=== PATIENT | female | born 1990 | race Caucasian/White ===

== ENCOUNTER 2017-07-18 10:23 | Emergency (ER) | payer OTHER, SELFPAY ==
[2017-07-18 10:24] VITALS: BP 123/80; PULSE 94; RESP 18; TEMP 36.7; O2SAT 93; BMI 35.4
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
[2017-07-18] MEDS: Diphth,Pertuss(Acell),Tet Vac 0.5 ML Vial IM (11:14)
[2017-07-18] MEDS: HYDROcodone Bitartrate/Apap 5/325 Tablet PO (11:15)
[2017-07-18] MEDS: Naproxen 250 MG Tablet 500 MG PO (11:15)
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
[2017-07-18 11:53] VITALS: BP 127/86; PULSE 110; RESP 15; O2SAT 97
== END 2017-07-18 11:54 | disposition home or self-care (01) ==
PROVIDERS: Emergency Provider Emergency Medicine; Family Provider Family Medicine; PCP Family Medicine
DX: S20.219A Contusion of unspecified front wall of thorax, initial encounter (principal); S90.01XA Contusion of right ankle, initial encounter; V43.52XA Car driver injured in collision with other type car in traffic accident, initial encounter; Y93.9 Activity, unspecified; Y92.009 Unspecified place in unspecified non-institutional (private) residence as the place of occurrence of the external cause; Y99.9 Unspecified external cause status; Z88.0 Allergy status to penicillin
CPT/HCPCS: 71046; 73610; 90715; 99283

== ENCOUNTER → 2018-07-09 16:08 | Outpatient (CLI) | payer OTHER, SELFPAY ==
[2018-07-09 17:54] LABS: Chlamydia Trachomatis by PCR Negative (Negative); Neisserai gonorrhoeae by PCR Negative (Negative); Probe Check PASS; Sample Adequacy Control PASS; Specimen Processing Control PASS
== END ==
PROVIDERS: Family Provider Family Medicine; PCP Family Medicine; Visit Provider Obstetrics & Gynecology
DX: Z11.3 Encounter for screening for infections with a predominantly sexual mode of transmission (principal); Z32.01 Encounter for pregnancy test, result positive
CPT/HCPCS: 87491; 87591

== ENCOUNTER → 2018-08-09 09:47 | Outpatient (CLI) | payer OTHER, SELFPAY ==
[2018-08-09 10:39] LABS: Color, Urine Yellow (Yellow); Glucose, Dipstick Normal (Normal); Ketone-Dipstick 5 mg/dl (Negative); Leukocyte Esterase-Dipstick 100 /ul (Negative); Nitrite-Dipstick Negative (Negative); Occult Blood-Urine Negative /ul (Negative); Protein-Dipstick Negative (Negative); Specific Gravity, Urine 1.015 (1.002-1.030); Urine Bilirubin Dipstick Negative (Negative); Urine Clarity Sl. Cloudy (Clear); Urine Urobilinogen Normal (Normal); Urine pH 6.5 (5.0 - 8.0)
[2018-08-09 10:41] LABS: Absolute Lymphocyte Count 1.92 X10^3/ul (0.83-4.51); Absolute Neutrophil Count 4.8 X10^3/uL (2.0-7.7); Basophil# 0.01 X10^3/uL; Basophil% 0.1 % (0-1); Eosinophil# 0.22 X10^3/uL; Eosinophils% 2.8 % (0-5); Hematocrit 40.8 % (37-47); Hemoglobin 13.8 g/dl (12.0-15.0); Lymphocyte # 1.92 X10^3/ul (4.0); Lymphocyte % 24.8 % (19-41); Mean Corp Hgb Conc 33.8 g/gl (32-36); Mean Corpuscular Hgb 28.3 pg (27.0-32.0); Mean Corpuscular Volume 83.6 fL (81-99); Mean Platelet Vol. 9.5 fl (6.2-12.0); Monocyte# 0.71 X10^3/uL; Monocyte% 9.2 % (0-10); Neutrophil # 4.83 X10^3/uL (2.7-7.7); Neutrophil % 62.6 % (47-70); POSITIVE COUNT NO; POSITIVE DIFFERENTIAL NO; POSITIVE MORPHOLOGY NO; Platelet Count 262 K/mm3 (150-450); RBC Distribution Width CV 13.5 % (11.6-14.6); RBC Distribution Width SD 41.2 fl (35.1-43.9); Red Blood Count 4.88 M/mm3 (4.2-5.4); White Blood Count 7.7 K/mm3 (4.4-11.0)
[2018-08-09 10:58] LABS: Thyroid Stim Hormone (TSH) 0.79 uIU/mL (0.358-3.74)
[2018-08-09 11:37] LABS: HIV - WCH Non-Reactive (Nonreactive); Rubella IgG 152.8 IU/mL
[2018-08-10 12:14] LABS: HEPATITIS B SURFACE AG Negative (Negative); Hep C Antibodies <0.1 s/co ratio (0.0-0.9)
[2018-08-13 01:43] LABS: Prenatal RPR NONREACTIVE (NONREACTIVE)
== END ==
PROVIDERS: Visit Provider Obstetrics & Gynecology
DX: Z34.81 Encounter for supervision of other normal pregnancy, first trimester (principal)
CPT/HCPCS: 36415; 81002; 84443; 85025; 86703; 86762; 86803; 87340

== ENCOUNTER → 2018-12-09 09:04 | Outpatient (CLI) | payer OTHER, SELFPAY ==
[2018-12-09 10:44] LABS: Hematocrit 37.1 % (37-47); Hemoglobin 12.5 g/dL (12.0-15.0); Mean Corp Hgb Conc 33.7 g/dL (32-36); Mean Corpuscular Hgb 29.7 pg (27.0-32.0); Mean Corpuscular Volume 88.1 fL (81-99); Mean Platelet Vol. 9.6 fl (6.2-12.0); Platelet Count 243 K/mm3 (150-450); RBC Distribution Width CV 13.9 % (11.6-14.6); RBC Distribution Width SD 44.8 fl (35.1-43.9); Red Blood Count 4.21 M/mm3 (4.2-5.4); White Blood Count 9.3 K/mm3 (4.4-11.0)
[2018-12-09 10:58] LABS: Glucose Challenge Gest 1H 50g 94 mg/dL (70-140)
== END ==
PROVIDERS: Referring Provider Obstetrics & Gynecology; Visit Provider Obstetrics & Gynecology
DX: Z34.83 Encounter for supervision of other normal pregnancy, third trimester (principal)
CPT/HCPCS: 36415; 82950; 85027; 86850

== ENCOUNTER 2019-02-10 03:45 | Inpatient (IN) | payer OTHER, SELFPAY ==
[2019-02-10] VITALS (21 sets, daily range): BP systolic 92–111; BP diastolic 40–92; PULSE 68–93; RESP 14–20; TEMP 36.3–37.4; O2SAT 95–100; BMI 39.7
--- NOTE | 2019-02-10 04:10 | PCM.HPOB.BLA ---
History and Physical Date of Admission: 02/10/19 OB HISTORY AND PHYSICAL EXAMINATION History of this : 28 yo female Ab0 with EDC 02/27/2019 by Ultrasound, presents to Labor and Delivery with SROM at 37 1/2 wk EGA care remarkable for - 1.) Call [facility] for C/S if in labor 2.) ALLERGIC to PCN, Ampicillin 3.) AB NEG 4.) Prior C section, CPD. C & P for 5 hr plans repeat C section Pertinent Past Medical History: As above. Allergies: Penicillins Medications: During - 28 mg-800 mcg tablet Review of Systems: gush of fluid, Contractions PAST HISTORY: Breast/Ovarian/Colon Cancers - Denies Infections - Chicken pox Illnesses - none Accidents - None History of Abnormal PAPS - Denies Hospitalizations - None SURGICAL HISTORY: 1. broken nose 1999 2. [place] Teeth Removal 3. 01/19/2017 Summer Donavon Wheeler MD MENSTRUAL HISTORY: LMP Known?- DefiniteAmount/Duration - 5 days, Regularity - regular, Frequency - monthly days, LMP - 05/23/18, Age Onset Menarche - 11 PAST PREGNANCIES: Total Pregnancies - 2; Full Term Pregnancies - 1; Premature - 0; Abortions, Induced - 0; Abortions, Spontaneous - 0; Ectopics - 0; Multiple Births - 0; Living Children - 1 FAMILY HISTORY: Father - Heart disorder; Paternal Grandparent - Heart disorder; Paternal Grandparent - Type 2 Diabetes; SOCIAL HISTORY: Alcohol Use - denies drinking Smoking - Never Diet - no special diet Lifestyle - Exercise - active work Seat Belt Use - always Employer - [employer]. 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 Illicit Drug Use - denies use of street drugs Sexual Activity - Residence - owns a home Place of - [place], [place] Hours Worked - 40 hours per week Spouse-Sig Other Name - Barron Spouse-Sig Other Occupation - management information systems director-[employer] Spouse-Sig Other Phone No - [phone] Children Name(s) - Tracy Control - PHYSICAL EXAMINATION General Appearance: 28 yo female in no acute distress Vital Signs: AF, VSS Breasts: deferred Abdomen: gravid Pelvis: Cervix: 3 /75/-3 cm per RN check, Grossly ruptured membranes Presentation: Vtx cephalic Station: Fetus: Size: AGA Movement: present Heart: 140-150s UCs q 3-4 minutes Impression /Plan: Intrauterine . 37 4/7 wk EGA with SROM, contractions. Prior C section. Planned repeat C section. Admit for repeat C/S
[2019-02-10] MEDS: Lactated Ringers 1,000 ML 999 ML IV (04:25)
[2019-02-10 04:40] LABS: Absolute Lymphocyte Count 1.58 X10^3/uL (0.83-4.51); Absolute Neutrophil Count 6.6 X10^3/uL (2.0-7.7); Basophil# 0.04 X10^3/uL; Basophil% 0.4 % (0-1); Eosinophil# 0.35 X10^3/uL; Eosinophils% 3.7 % (0-5); Hematocrit 37.7 % (37-47); Hemoglobin 12.5 g/dL (12.0-15.0); Lymphocyte # 1.58 X10^3/ul (4.0); Lymphocyte % 16.7 % (19-41); Mean Corp Hgb Conc 33.2 g/dL (32-36); Mean Corpuscular Volume 87.5 fL (81-99); Mean Platelet Vol. 9.9 fl (6.2-12.0); Monocyte# 0.76 X10^3/uL; NRBC Flagged by Analyzer 0 % (0-5); Neutrophil # 6.62 X10^3/uL (2.7-7.7); Neutrophil % 69.9 % (47-70); Platelet Count 226 K/mm3 (150-450); RBC Distribution Width CV 14.5 % (11.6-14.6); RBC Distribution Width SD 45.9 fl (35.1-43.9); Red Blood Count 4.31 M/mm3 (4.2-5.4); White Blood Count 9.5 K/mm3 (4.4-11.0)
--- NOTE | 2019-02-10 04:59 | DCINST_ITS ---
Discharge Diet: No Restrictions Discharge Activity: May not drive while taking narcotic pain medications., May Shower, May Take a Tub Bath May resume sexual activity in: 4-6 weeks Lifting Restrictions: 20 pounds Additional Activity Instructions:: Nothing in the vagina for 4-6 weeks. You may return to work/school in 6 weeks. Additional Instructions: If you experience any of the following, contact your healthcare provider. * Bleeding that soaks a pad every hour for 2 hours * Fever 100.4 or higher * Unrelieved incision or abdominal pain * Swelling, redness, discharge or bleeding from your incision * Problems urinating (including inability to urinate or burning while urinating). * Visual changes * Severe headache * Flu-like symptoms * Pain or redness in one of both of your breasts * Pain, warmth, tenderness or swelling in your legs, especially the calf area * Frequent nausea and vomiting * Symptoms of depression or anxiety If you experience any of the following, call 911 or go to the nearest Emergency Room. * Chest pain * Problems breathing * Seizure activity * Partial or complete paralysis of a body part, slurred speech, weakness or drooping of the face, or a sudden inability to walk or hold your balance Allergies/Adverse Reactions: Allergies amoxicillin Allergy (Verified 02/10/19 04:18) Hives Penicillins Allergy (Verified 02/10/19 04:18) Hives Medications to take at Discharge Vits [Prenatabs FA ] 1 tab PO DAILY 01/18/17 Docusate Sodium [Colace] 100 mg PO BID #30 cap 02/10/19 Naproxen [Naprosyn] 250 - 500 mg PO TID PRN PRN #30 tab 02/10/19 Oxycodone [Oxyir] 5 mg PO Q6H PRN PRN 4 Days #15 tablet 02/10/19 The following prescriptions were given: Docusate Sodium [Colace] 100 mg PO BID #30 cap Transmission Status: [facility] to [id number] Naproxen [Naprosyn] 250 - 500 mg PO TID PRN PRN #30 tab PRN Reason: Mild-Mod Pain (1-09/03) Transmission Status: [id number] Oxycodone [Oxyir] 5 mg PO Q6H PRN PRN 4 Days #15 tablet PRN Reason: Mod-Severe Pain (4-02/03) Transmission Status: [facility] by [id number] Follow-Up: Call to make an appointment with your doctor for an incision check in 1-2 weeks. You will also need a 6 week post- follow up appointment. Test results from this visit will be discussed in further detail at your follow- up appointment, if applicable. Please Follow Up With: Rowena Alvarado MD - [phone] When: Call to make an appointment for an incision check in 2 weeks.
--- NOTE | 2019-02-10 04:59 | PCM.DCCSEC ---
Discharge Diet: No Restrictions Discharge Activity: May not drive while taking narcotic pain medications., May Shower, May Take a Tub Bath May resume sexual activity in: 4-6 weeks Lifting Restrictions: 20 pounds Additional Activity Instructions:: Nothing in the vagina for 4-6 weeks. You may return to work/school in 6 weeks. Additional Instructions: If you experience any of the following, contact your healthcare provider. Bleeding that soaks a pad every hour for 2 hours Fever 100.4 or higher Unrelieved incision or abdominal pain Swelling, redness, discharge or bleeding from your incision Problems urinating (including inability to urinate or burning while urinating). Visual changes Severe headache Flu-like symptoms Pain or redness in one of both of your breasts Pain, warmth, tenderness or swelling in your legs, especially the calf area Frequent nausea and vomiting Symptoms of depression or anxiety If you experience any of the following, call 911 or go to the nearest Emergency Room. Chest pain Problems breathing Seizure activity Partial or complete paralysis of a body part, slurred speech, weakness or drooping of the face, or a sudden inability to walk or hold your balance Allergies/Adverse Reactions: Allergies amoxicillin Allergy (Verified 02/10/19 04:18) Hives Penicillins Allergy (Verified 02/10/19 04:18) Hives Medications to take at Discharge Vits [Prenatabs FA ] 1 tab PO DAILY 01/18/17 Docusate Sodium [Colace] 100 mg PO BID #30 cap 02/10/19 Naproxen [Naprosyn] 250 - 500 mg PO TID PRN PRN #30 tab 02/10/19 Oxycodone [Oxyir] 5 mg PO Q6H PRN PRN 4 Days #15 tablet 02/10/19 The following prescriptions were given: Docusate Sodium [Colace] 100 mg PO BID #30 cap Transmission Status: [id number] Naproxen [Naprosyn] 250 - 500 mg PO TID PRN PRN #30 tab PRN Reason: Mild-Mod Pain (-09/03) Transmission Status: [id number] Oxycodone [Oxyir] 5 mg PO Q6H PRN PRN 4 Days #15 tablet PRN Reason: Mod-Severe Pain (-02/03) Transmission Status: [facility] by [id number] Follow-Up: Call to make an appointment with your doctor for an incision check in 1-2 weeks. You will also need a 6 week post- follow up appointment. Test results from this visit will be discussed in further detail at your follow-up appointment, if applicable. Please Follow Up With: Rowena Alvarado MD - [phone] When: Call to make an appointment for an incision check in 2 weeks.
[2019-02-10] MEDS: Sodium Citrate/Citric Acid 30 ML UDC PO (05:11)
[2019-02-10] MEDS: Ketorolac 30 MG/ML Syringe IV ×4 (06:18→23:48)
--- NOTE | 2019-02-10 06:22 | OP.PCM_ITS ---
Delivery Classification: SULTANA Final NENITA: 02/28/19 Gestational age: 37 Weeks and 3 Days hogshead opener: Sergo Muñoz Type of Anesthesia:: Spinal - Jarvis Whipple MD Date of Procedure: 02/10/19 Pre-Operative Diagnosis: 37 4/7 wk EGA SROM labor Prior C/S planned repeat C section Post-Operative Diagnosis: Same Indications: SROM 37 4/7 wk labor. Indications for : Repeat Elective Description of Procedure: Findings: At amniotomy, clear fluid was noted. Valdez viable male in vertex presentation. Apgars 8/9, Baby weight:6# 8 oz There was a normal appearing uterus, fallopian tubes and ovaries bilaterally. There were minimal filmy adhesions between the bladder and lower uterine segment. PATH: Routine cord blood for typing collected. Narrative account: After the risks, benefits and alternatives of the procedure were reviewed with the patient, informed consent was obtained. The patient was taken to the Operating room with an IV running, and placed in a seated position on the operating table for placement of the spinal. Once the spinal had been administered, she was briefly frog-legged for Brooks catheter placement, and then repositioned to dorsal supine position with leftward displacement of the uterus, and prepped and draped in the usual sterile fashion. Once the spinal was deemed adequate, a Pfannenstiel skin incision was created using the knife . The incision was carried down to the rectus fascia using the knife. The fascia was nicked in the midline. The fascial incision was extended bilaterally using curved Bowles scissors. The superior aspect of the fascial incision was grasped with Mick clamps and tented up and the underlying rectus abdominal muscles were dissected free. In a similar manner, the inferior aspect of the facial incision was grasped with Mick clamps tented up and the underlying rectus abdominal muscles were dissected free. The rectus abdominis muscles were in the midline and the peritoneum was identified and entered by blunt dissection high in the incision. The peritoneum was stretched laterally and a bladder blade was inserted. A bladder flap was created along the lower uterine segment with Metzenbaum scissors . The uterine incision was then created using Metzenbaum scissors. The operators fingertips were used to extend the uterine incision by blunt dissection in a caudad- cephalad orientation . Clear fluid was noted at amniotomy. The vertex was then delivered atraumatically through the incision. The OP and nares were bulb suctioned on the abdomen. The shoulders delivered easily . The cord clamped x two and cut. And the in lila was handed off to the nurse awaiting delivery after briefly showing him to his parents. The baby had a spontaneous, vigorous cry. The placenta was then delivered. The uterus was exteriorized and cleared of clots and debris . The uterine incision was repaired with 1 Vicryl in a running locked fashion. A figure of eight stitch of 1 Vicryl was placed at the Right uterine angle. A second imbricating layer was then placed, using 1 Monocryl in running nonlocked fashion. Bovie cautery was used to treat any bleeding areas . Excellent hemostasis was noted. At this point the uterus was returned to the abdominal cavity. The gutters were cleared of clots and debris and the incision at the uterus was inspected. Excellent hemostasis was noted. The peritoneal edges and rectus abdominis muscles were reapproximated with vertical mattress stitches of 1 Vicryl. Excellent hemostasis was noted at the subfascial space The fascia was closed in a running nonlocked fashion with a Stratofix. The Subcutaneous fatty tissue was Bovie cauterized as needed for hemostasis. This layer was then reapproximated in a single layer closure of running 3-0 Vicryl to eliminate lala d space. The skin edges were closed in a Subcuticular stitch of 4-0 Monocryl. The incision was cleansed. Cavilon, Steristrips, and Mepilex dressing were applied to the skin . The patient was then transferred to the recovery room bed in stable condition after tolerating the procedure well. Sponge, lap, needle and instrument counts correct times two. Medications given preop and intraoperatively included: Gentamicin and Clindamycin given cotton ball bagger to the operating room. The patient also received Pitocin given IV after cord clamp, and Toradol 30 mg IV times one. For a complete listing of medications given preop and intraoperatively, please see the anesthesia record. Amniotic Membrane Rupture Type: Spontaneous Amniotic Fluid Description: Clear Placenta Disposition: [facility] Drain: Brooks to straight drain Fluids Replaced: LR Cord Entanglement: None Cord Vessel Description: 3 Vessels Infant Gender: Male (1 minute): 8 (5 minute): 9 Antibiotic Given: Clindamycin 600mg IV x1 and Gentamicin 1.5mg/kg IV x1 Pt instructed on risks of surgery: Bleeding, Infection Complications: None - Admit VTE Documentation VTE Present on Admission: No VTE Mechan Device Prophylaxis: SCD's VTE Pharm Prophylaxis ordered?: No
[2019-02-10] MEDS: Oxytocin 30 units/NS 500 ml 30 UNITS/500 ML IV.SOLN 167 UNITS IV (06:40)
[2019-02-10] MEDS: Lactated Ringers 1,000 ML 100 ML IV (09:50)
--- NOTE | 2019-02-10 12:19 | CPS ---
patient , explained to her and she has prior knowledge, she will start later.
[2019-02-10] MEDS: 0.9% Saline Lock 10 ML Syringe IV (23:48)
[2019-02-11] VITALS: BP 103/56; PULSE 94; RESP 16; TEMP 37; O2SAT 97
[2019-02-11 02:30] VITALS: PULSE 72; RESP 16; O2SAT 96
[2019-02-11 04:30] VITALS: BP 100/44; PULSE 94; RESP 16; TEMP 36.6; O2SAT 96
[2019-02-11] MEDS: Ketorolac 30 MG/ML Syringe IV ×2 (05:38→12:04)
[2019-02-11] MEDS: 0.9% Saline Lock 10 ML Syringe IV ×3 (05:39→18:24)
[2019-02-11 06:21] LABS: Hematocrit 31.1 % (37-47); Hemoglobin 10.1 g/dL (12.0-15.0); Mean Corp Hgb Conc 32.5 g/dL (32-36); Mean Corpuscular Hgb 28.5 pg (27.0-32.0); Mean Corpuscular Volume 87.9 fL (81-99); Platelet Count 192 K/mm3 (150-450); RBC Distribution Width CV 14.8 % (11.6-14.6); RBC Distribution Width SD 47.5 fl (35.1-43.9); Red Blood Count 3.54 M/mm3 (4.2-5.4); White Blood Count 11.5 K/mm3 (4.4-11.0)
--- NOTE | 2019-02-11 07:23 | PCM.PN.OB ---
Subjective: POD#1 Repeat C/s in labor 37 1/2 wk EGA doing well. Nursing. Brooks out and IV to saline lock. Pain control adequate and denies N/V. - Physical Exam General: Alert, Oriented x3, Cooperative, No apparent distress HEENT: Atraumatic, EOMI Neck: Supple Abdomen: Soft - Fundus firm and minimally tender, inferior to umbilicus Skin: Incision - Silver mepilex dressing CDI. Neurological: Cranial nerves II-XII grossly intact Psych/Mental Status: Normal Affect Vital Signs Temp Pulse Resp BP Pulse Ox 97.9 F 94 16 100/44 L 96 02/11/19 04:30 02/11/19 04:30 02/11/19 04:30 02/11/19 04:30 02/11/19 04:30 Oxygen Delivery Method Room Air Weight: 105 kg Body Mass Index (BMI) 39.7 Intake and Output for Last 24 Hours 02/09/19 02/10/19 02/11/19 23:59 23:59 23:59 Intake Total 4178.63 / 4178.63 Output Total 1300 / 2100 1750 / 1750 Balance 2878.63 / 2078.63 -1750 / -1750 Laboratory Tests Past 24 Hrs 02/11/19 06:00 WBC 11.5 H RBC 3.54 L Hgb 10.1 L Hct 31.1 L MCV 87.9 MCH 28.5 MCHC 32.5 RDW Std Deviation 47.5 H RDW Coeff of Nicole 14.8 H Plt Count 192 MPV 10.0 Medical Necessity - Tobacco Use Smoking Status: Never smoker Assessment/Plan All Active Problems S/P section (Acute) POD#1 Repeat C/s in labor 37 1/2 wk EGA Stable postop. Continue routine postop care. Inc diet and activity as tolerated. Begin po meds. continue Toradol through S/L Brooks removed for voiding trial.
[2019-02-11 08:00] VITALS: BP 98/48; PULSE 82; RESP 16; TEMP 36.8; O2SAT 96
[2019-02-11] MEDS: Senna/Docusate Sodium 1 Tablet PO (12:04)
[2019-02-11 13:53] VITALS: BP 100/53; PULSE 90; RESP 18; TEMP 36.9
[2019-02-11] MEDS: Acetaminophen 500 MG Tablet 1000 MG PO (15:50)
[2019-02-11] MEDS: Naproxen 250 MG Tablet PO (18:42)
[2019-02-11] MEDS: oxyCODONE 5 MG Tablet PO (19:58)
[2019-02-11 20:00] VITALS: BP 110/67; PULSE 102; RESP 18; TEMP 36.6; O2SAT 97
[2019-02-12 01:50] VITALS: BP 105/61; PULSE 91; RESP 18; TEMP 36.6; O2SAT 97
[2019-02-12] MEDS: oxyCODONE 5 MG Tablet PO ×2 (04:29→11:22)
[2019-02-12] MEDS: Senna/Docusate Sodium 1 Tablet PO (08:19)
[2019-02-12] MEDS: Naproxen 250 MG Tablet PO (08:20)
[2019-02-12 08:50] VITALS: BP 115/62; PULSE 100; RESP 16; TEMP 36.8
--- NOTE | 2019-02-12 09:11 | PN.OBGYN_ITS ---
Subjective: Has been up walking and showered, pain moderately well controlled, tolerating diet, passing gas, has had a bowel movement; well; would like to go home today Objective: AVSS Breasts filling, nipples atraumatic on L, some excoriation on R Fundus firm, midline u/1, lochia small Abdominal Mephilex dressing dry and intact - Physical Exam General: Alert, Oriented x3, Cooperative, No apparent distress HEENT: PERRLA, EOMI Oral: Moist Mucosa Neck: Supple Lungs: Clear to auscultation, Normal air movement Cardiovascular: Regular rate, Regular Rhythm Abdomen: Bowel Sounds Present, Soft, Non Tender, Non-Distended, Passing Flatus Extremities: Capillary Refill Less than 3 Seconds, No Calf Tenderness Musculoskeletal: No Tenderness to Palpation of Joints or Extremities Neurological: Cranial nerves II-XII grossly intact, Deep Tendon Reflexes 2+/4 an d Symmetrical Psych/Mental Status: Normal Affect, Appropriate, Alert and oriented to time, place, person, mood and affect Vital Signs Temp Pulse Resp BP Pulse Ox 98.2 F 100 16 115/62 97 02/12/19 08:50 02/12/19 08:50 02/12/19 08:50 02/12/19 08:50 02/12/19 01:50 Oxygen Delivery Method Room Air Weight: 231 lb 7.766 oz Body Mass Index (BMI) 39.7 Intake and Output for Last 24 Hours 02/10/19 02/11/19 02/12/19 23:59 23:59 23:59 Intake Total 4178.63 / 4178.63 Output Total 1300 / 2100 2150 / 2150 Balance 2878.63 / 2078.63 -2150 / -2150 Medical Necessity - Tobacco Use Smoking Status: Never smoker Assessment/Plan All Active Problems S/P section (Acute) POD#2 Repeat C/s in labor 37 1/2 wk EGA Stable postop. Continue routine postop care. May DC home at pt request if remains stable
--- NOTE | 2019-02-12 15:43 | NURSING ---
1130 Pt requesting shells and shield stated Medina suggested them to her the other day. Pt states she used a shield with her first baby and knows how to use them, the importance of making sure that the baby is getting milk (swallowing, seeing milk in the shield, etc). She stated she only used it for awhile with her first baby as needed. She has a f/u appt with on Thursday and will contact them in the meantime if she has any questions. Stressed with mom the importance of her baby opening his mouth wide and not slurping her nipple in order to decrease tenderness. Nipples are reddened and appeared bruised. No open areas noted. Given comfort gels with instructions and shells. Pt indicates she understands how to use them as well. Breasts full and firm. Spoke with Cecelia Hall RN well service floorperson for who was agreeable to this plan prior to my above contact/teaching with patient, and Cecelia stated it was fine to give her both shells and a shield.
--- NOTE | 2019-02-12 15:52 | NURSING ---
1210 Discharged to home with baby. Pt states she is ready to go home and feels able to care for herself and her infant. To car in wheelchair with baby in carseat in her lap.
== END 2019-02-12 12:00 | disposition home or self-care (01) | DRG 786 ==
PROVIDERS: Admitting Provider Obstetrics & Gynecology; Visit Provider Obstetrics & Gynecology
DX: O65.5 Obstructed labor due to abnormality of maternal pelvic organs (principal); O60.14X0 Preterm labor third trimester with preterm delivery third trimester, not applicable or unspecified; O99.324 Drug use complicating childbirth; O34.219 Maternal care for unspecified type scar from previous cesarean delivery; F19.90 Other psychoactive substance use, unspecified, uncomplicated; Z37.0 Single live birth; Z3A.37 37 weeks gestation of pregnancy; Z82.49 Family history of ischemic heart disease and other diseases of the circulatory system; Z83.3 Family history of diabetes mellitus; Z88.0 Allergy status to penicillin
CPT/HCPCS: 59025; 59050; 85025; 85027; 86850; 86900; 86901; 90384; 94762; 99218; J7120; A4216; G0378; J2405; J2790

== ENCOUNTER → 2020-11-30 16:06 | Outpatient (CLI) | payer OTHER, SELFPAY ==
[2019-02-10 04:16] VITALS: BMI 39.7
[2020-11-30 16:50] LABS: Absolute Lymphocyte Count 2.27 X10^3/uL (0.83-4.51); Absolute Neutrophil Count 6.9 X10^3/uL (2.0-7.7); Basophil# 0.04 X10^3/uL; Basophil% 0.4 % (0-1); Eosinophil# 0.29 X10^3/uL; Eosinophils% 2.8 % (0-5); Hematocrit 40.3 % (37-47); Hemoglobin 13.3 g/dL (12.0-15.0); Lymphocyte # 2.27 X10^3/ul (0.83-4.51); Mean Corpuscular Hgb 27.7 pg (27.0-32.0); Mean Platelet Vol. 9.5 fl (6.2-12.0); Monocyte# 0.79 X10^3/uL; Monocyte% 7.7 % (0-10); NRBC Flagged by Analyzer 0 % (0-5); Neutrophil # 6.85 X10^3/uL (2.7-7.7); Neutrophil % 66.5 % (47-70); Platelet Count 304 K/mm3 (150-450); RBC Distribution Width CV 13.3 % (11.6-14.6); White Blood Count 10.3 K/mm3 (4.4-11.0)
[2020-11-30 17:02] LABS: Color, Urine Yellow (Yellow); Glucose, Dipstick Normal (Normal); Ketone-Dipstick Negative (Negative); Leukocyte Esterase-Dipstick 25 /ul (Negative); Nitrite-Dipstick Negative (Negative); Occult Blood-Urine Negative /ul (Negative); Protein-Dipstick Negative (Negative); Specific Gravity, Urine 1.025 (1.002-1.030); Urine Bilirubin Dipstick Negative (Negative); Urine Clarity Sl. Cloudy (Clear); Urine Urobilinogen Normal (Normal)
[2020-11-30 17:33] LABS: Amphetamine Urine VISTA NEGATIVE (<1000 ng/mL); Barbiturate Urine VISTA NEGATIVE (< 200 ng/mL); Benzodiazepine Urine VISTA NEGATIVE (< 200 ng/mL); Cocaine Urine VISTA NEGATIVE (< 300 ng/mL); Ecstacy Urine VISTA NEGATIVE (< 500 ng/mL); Methadone Urine VISTA NEGATIVE (< 300 ng/mL); PCP Urine VISTA NEGATIVE (< 25 ng/mL); THC Urine VISTA NEGATIVE (< 50 ng/mL); Vista UDS pH Range 6
[2020-11-30 17:35] LABS: Thyroid Stim Hormone (TSH) 1.13 uIU/mL (0.358-3.74)
[2020-12-01 09:42] LABS: HIV - WCH Non-Reactive (Nonreactive); Hepatitis B Surface Antigen Non-Reactive (Nonreactive); Hepatitis C Antibody Non-Reactive (Nonreactive); Rubella IgG Reactive (Nonreactive); Syphilis Antibodies Non-reactive
[2020-12-04 03:06] LABS: Chlamydia By Nucleic Acid AMP Negative (Negative)
[2020-12-04 09:56] LABS: Gonococcus By Nucleic Acid AMP Negative (Negative)
[2020-12-04 17:26] LABS: HPV APTIMA, High Risk Negative (Negative); HPV Reflexed? YES, CHARGE PATIENT
== END ==
PROVIDERS: Visit Provider Obstetrics & Gynecology
DX: Z12.4 Encounter for screening for malignant neoplasm of cervix (principal); Z11.3 Encounter for screening for infections with a predominantly sexual mode of transmission; Z34.81 Encounter for supervision of other normal pregnancy, first trimester
CPT/HCPCS: 36415; 80307; 81002; 84443; 85025; 86703; 86762; 86780; 86803; 87340; 87491; 87591; 87624; 88175; G0145

== ENCOUNTER → 2021-04-23 13:11 | Outpatient (CLI) | payer OTHER, SELFPAY ==
[2021-04-23 15:00] LABS: Hematocrit 37.1 % (37-47); Hemoglobin 12.5 g/dL (12.0-15.0); Mean Corp Hgb Conc 33.7 g/dL (32-36); Mean Corpuscular Hgb 28.9 pg (27.0-32.0); Mean Corpuscular Volume 85.9 fL (81-99); Mean Platelet Vol. 9.8 fl (6.2-12.0); Platelet Count 243 K/mm3 (150-450); RBC Distribution Width CV 14.6 % (11.6-14.6); RBC Distribution Width SD 45.6 fl (35.1-43.9); Red Blood Count 4.32 M/mm3 (4.2-5.4); White Blood Count 9.3 K/mm3 (4.4-11.0)
[2021-04-23 15:24] LABS: Glucose Challenge Gest 1H 50g 135 mg/dL (70-140)
== END ==
PROVIDERS: Visit Provider Obstetrics & Gynecology
DX: Z34.83 Encounter for supervision of other normal pregnancy, third trimester (principal)
CPT/HCPCS: 36415; 82950; 85027; 86850

== ENCOUNTER 2021-06-20 12:09 | Outpatient (CLI) | payer OTHER, SELFPAY | END 2021-06-20 23:59 | disposition home or self-care (01) | LOC: LABSPEC 12:09 | PROVIDERS: Visit Provider Obstetrics & Gynecology | DX: Z36.85 Encounter for antenatal screening for Streptococcus B (principal) | CPT/HCPCS: 87077; 87081; 87186 ==

== ENCOUNTER 2021-07-05 14:24 | Outpatient (CLI) | payer OTHER, SELFPAY | END 2021-07-05 23:59 | disposition home or self-care (01) | LOC: PSN 14:26 | PROVIDERS: Referring Provider Obstetrics & Gynecology; Visit Provider Obstetrics & Gynecology | DX: Z03.818 Encounter for observation for suspected exposure to other biological agents ruled out (principal) | CPT/HCPCS: 87426; C9803 ==

== ENCOUNTER 2021-07-09 05:02 | Inpatient (IN) | payer OTHER, SELFPAY ==
[2021-07-09] VITALS (23 sets, daily range): BP systolic 87–127; BP diastolic 47–83; PULSE 69–107; RESP 14–18; TEMP 36–36.7; O2SAT 95–100; BMI 41.3
[2021-07-09] MEDS: Lactated Ringers 1,000 ML 999 ML IV (05:30)
[2021-07-09 05:45] LABS: Absolute Lymphocyte Count 2.11 X10^3/uL (0.83-4.51); Absolute Neutrophil Count 5.4 X10^3/uL (2.0-7.7); Basophil# 0.03 X10^3/uL; Basophil% 0.4 % (0-1); Eosinophil# 0.29 X10^3/uL; Eosinophils% 3.4 % (0-5); Hematocrit 35.1 % (37-47); Lymphocyte # 2.11 X10^3/ul (0.83-4.51); Lymphocyte % 24.9 % (19-41); Mean Corp Hgb Conc 34.2 g/dL (32-36); Mean Corpuscular Hgb 28.2 pg (27.0-32.0); Mean Corpuscular Volume 82.6 fL (81-99); Mean Platelet Vol. 10.5 fl (6.2-12.0); Monocyte# 0.53 X10^3/uL; Monocyte% 6.3 % (0-10); NRBC Flagged by Analyzer 0 % (0-5); Neutrophil # 5.37 X10^3/uL (2.7-7.7); Neutrophil % 63.5 % (47-70); Platelet Count 208 K/mm3 (150-450); RBC Distribution Width CV 14.9 % (11.6-14.6); Red Blood Count 4.25 M/mm3 (4.2-5.4); White Blood Count 8.5 K/mm3 (4.4-11.0)
[2021-07-09] MEDS: Acetaminophen 500 MG Tablet 1000 MG PO ×3 (06:18→18:37)
--- NOTE | 2021-07-09 07:09 | HP.PCM.OB_ITS ---
HPI - General General Date of Admission: 07/09/21 HPI Narrative CHANCE REZA, is a 30 F presents at 39 weeks gestation for scheduled repeat section and tubal sterilization Maternal Data Information NENITA Calculator Estimated Delivery Date Method Current WG Current Estimate 07/16/21 LMP (Certain) 39w 0d PFSH PFSH Medical History (Updated 07/09/21 @ 07:[address] Marissa Wheeler MD) Seasonal allergies Home Medications Prenatabs FA 1 tab PO DAILY 01/18/17 [History Last Taken 07/08/21] Allergy/AdvReac Type Severity Reaction Status Date / Time amoxicillin Allergy Hives Verified 07/09/21 05:17 Penicillins Allergy Hives Verified 07/09/21 05:17 Surgical History (Updated 07/09/21 @ 07:[address] Marissa Wheeler MD) H/O: S/P section Social History Smoking Status: Never smoker History 3 Elective abortions Hx Para 2 Spontaneous abortions Hx # Term Pregnancies 2 Ectopic pregnancies Hx # Pregnancies Multiple births # of living children 2 Past Pregnancies Del. Date Name GA/Weeks Outcome Route Bth Weight Infant Gen Labor Lgth Anesthesia Del Locatn Provider FOB 01/19/17 Tracy 41 live - full term 8lb1oz Female 16 epidural Guilherme Donavon Mart 02/10/19 Barron 37 live - full term 6lb9oz Male s melodie Guilhermeosmar Mart Delivery Date: 01/19/17 IOL, 5 hour second stage Marissa Lanza Delivery Date: 02/10/19 Labor Marissa Lanza NST FHR Rate Baby A Baseline: 140 Variability:: Moderate Accelerations:: 15 x 15 Decelerations:: None NST Reactive:: Appropriate for gestational age FHR Category:: Category I Uterine Activity:: 05/06 Vital Signs Vital Signs Vital Signs: 07/09/21 05:30 Temperature 97.5 F L Temperature Source Temporal Pulse Rate 100 Respiratory Rate 14 Blood Pressure 127/83 H Blood Pressure Mean 97 Blood Pressure Source Monitor Blood Pressure Position Semi-Fowlers Blood Pressure Location Left Arm Pulse Ox 97 Oxygen Delivery Method Room Air Weight Weight: 109.134 kg Body Mass Index (BMI) 41.3 Physical Exam Const alert, oriented x3 and no apparent distress HEENT normocephalic Resp normal respiratory effort, normal air movement and clear to auscultation bilaterally Cardio regular rate and regular rhythm GI normal to inspection, nondistended, normoactive bowel sounds, soft to palpation, non-tender and non-distended Inspection: gravid Labs Labs Labs: Blood Type AB NEGATIVE Antibody Screen NEGATIVE Hct 35.1 % (37-47) L Hgb 12.0 g/dL (12.0-15.0) Syphilis Total Ab Non-reactive Rubella IgG Antibody Reactive (Nonreactive) Hep Bs Antigen Non-Reactive (Nonreactive) Neisseria gonorrhoeae DNA (AMANDA) Negative (Negative) HIV 1&2 Antibody Non-Reactive (Nonreactive) C.trachomatis DNA (PCR) Negative (Negative) Glucose 1 Hr 50 gm 135 mg/dL (70-140) Group B Strep DNA POSITIVE (Negative) H Rhogam given: Yes Assessment & Plan (1) 39 weeks gestation of : PLAN: Reactive NST Proceed with repeat C/S as planned (2) Encounter for sterilization: PLAN: Plan for tubal sterilization, bilateral salpingectomy
[2021-07-09] MEDS: Sodium Citrate/Citric Acid 30 ML UDC PO (07:15)
[2021-07-09] MEDS: Lactated Ringers 1,000 ML 150 ML IV (07:16)
[2021-07-09] MEDS: 0.9% Saline Lock 10 ML Syringe IV ×3 (07:22→21:19)
[2021-07-09] MEDS: Cefazolin 2 GM in 0.9% Normal Saline 100 ML IV (07:29)
--- NOTE | 2021-07-09 09:00 | OP.PCM_ITS ---
Assessment & Plan (1) 39 weeks gestation of : (2) Encounter for sterilization: (3) delivery delivered: Maternal Data Information NENITA Calculator Estimated Delivery Date Method Current WG Current Estimate 07/16/21 LMP (Certain) 39w 2d Details Operative Information Date of Procedure: 07/09/21 Pre-Operative Diagnosis: 1. 39 weeks gestation 2. Two prior section 3. Sterilization request Post-Operative Diagnosis: 1. 39 weeks gestation 2. Two prior section 3. Sterilization request Indications for : Repeat Elective and Desires elective sterilization Classification: Scheduled Procedure Type: low transverse web press operator helper offset #1: Sergo Muñoz Type of Anesthesia: Spinal Anesthesiologist: Jose Wasserman Antibiotic Given: Ancef 2 grams IV x1 Drain: Brooks to straight drain Estimated Blood Loss: 900 ml Fluids Replaced: 700 ml Findings Description of Procedure: Indications: 30-year-old 3 para 2-0-0-2 presents at 39 weeks gestational age for scheduled repeat section and bilateral salpingectomy. She had 2 prior sections and desired tubal sterilization. She is counseled regarding procedural risks, benefits, indications and alternatives and desired to proceed. The patient was taken to the operating room and spinal analgesia was administered. She is placed in a dorsal supine position with left lateral tilt. The perineum and abdomen were prepped and draped in sterile fashion. And the spinal was found to be adequate. A Pfannenstiel incision was made using a scalpel and brought down to incise the subcutaneous tissue and rectus fascia at the midline. Subcutaneous tissue was bluntly dissected off the fascia laterally. The fascial incision was dissected laterally and cephalad using curved Bowles scissors. The superior leaflet of the rectus fascia was grasped using Mick clamps and bluntly dissected and sharply dissected from the underlying rectus muscle. In a similar fashion the inferior rectus fascia was dissected from the underlying muscle. The rectus muscles were bluntly at the midline. The peritoneum was identified and entered [sharply]. The bladder blade was placed into the abdomen and the vesicouterine peritoneal fold identified. The fold was incised and a bladder flap created. Bladder blade was then repositioned to the abdomen. A low transverse hysterotomy was made using the [Metzenbaum scissors] to level of the membranes. The hysterotomy was extended bluntly cephalad and caudad. The membranes were then ruptured revealing clear fluid. The head was elevated and brought to the level of the hysterotomy and the delivered revealing vigorous [female] . The cord was doubly clamped and cut after 60 seconds. The infant was passed to awaiting [nursery personnel]. The placenta was [expressed] from the uterus and appeared intact on inspection. The uterus was exteriorized and cleared of debris. The hysterotomy was then repaired using 0 Vicryl running lock suture. A second imbricating layer was also placed for additional hemostasis. The right tubal fimbria was identified and the tube isolated. Salpingectomy was performed using the LigaSure transecting the mesosalpinx to the level of the uterine cornua and the cornual tube segment. There is good hemostasis. In similar fashion the left tube was identified and left salpingectomy also performed. The uterus and adnexa were returned to the abdomen. The hysterotomy was again inspected and hemostatic. The bladder blade was removed. The anterior cul-de-sac was cleared of debris. The peritoneum and rectus muscles w ere reapproximated using 2-0 Vicryl running suture. The rectus fascia was closed using 0 Vicryl running suture. The subcutaneous tissue was sponge irrigated and small capillary bleeding controlled using the Bovie device. The subcutaneous tissue was reapproximated using 2-0 Vicryl. The skin was closed using 4-0 Monocryl subcuticularly by the HOME SERVICE DIRECTOR under my supervision. A Mepilex occlusive dressing was placed over the incision. The fundus was firm. The patient was then transferred to the recovery room without complication. Sponge, instrument, and needle counts were correct ?2. Findings: Normal bilateral tubes, ovaries and uterus. Presentation: Positive for Vertex Amniotic Fluid Description: Clear Placental Delivery Description: Expressed Placenta Disposition: [facility] Specimen(s) Sent to Pathology: Bilateral tubes Cord Vessel Description: 3 Vessels Cord Entanglement: Around neck x 1, loose A Gender: Female (1 minute): 9 (5 minute): 10 Delayed Cord Clamping: Yes Complications Risks of Surgery Discussed w/Patient: Bleeding, Anesthesia Risks, Infection, Permanency, Failure Rate of 1 to 2%, Injury to surrounding structure(s) including bowel and bladder, Availability of other non-permanent control options and -
--- NOTE | 2021-07-09 09:05 | FALS_PTH ---
PATIENT: CHANCE REZA LOC: [facility] U#:[id number] AGE/SX: 30/F ROOM: [facility] RE07/09/[address]: Dr. Marissa Wheeler MD : 1990 BED: 1 DIS: 07/10/2021 SPEC #: [id number] RECD: 07/09/21 09:27 STATUS: BRIANNA JING #: [id number] F[place]ON: 07/09/21 09:[address]: Marissa Martin DEPT: SURGICAL PATHOLOGY RECD BY: Elizabeth Gilman ENTERED: 07/09/21 13:54 SP TYPE: FALL TUBES OTHR DR: Shahida Primary Care Phys Tissues: Fallopian tube Procedures: Surgery Specimen Level II HEADER OPERATION: Bilateral salpingectomy / tubal ligation PRE-OP DIAGNOSIS: Sterilization TISSUE SUBMITTED: Fallopian tubes MICROSCOPIC DIAGNOSIS Bilateral fallopian tubes, salpingectomies: Right fallopian tube - benign paratubal cyst. Left fallopian tube - benign paratubal cyst. See comment. AM:kwaku 07/10/2021 COMMENT Cross-section of both fallopian tubes are examined. MICROSCOPIC DESCRIPTION Slides are reviewed. GROSS DESCRIPTION Received in fixative is one container labeled with the patient's name and designated bilateral fallopian tubes, right with suture. The specimen consists of two fallopian tubes with an average length of 5.5 cm and has an average diameter of 0.7 cm. Both fallopian tubes have normal fimbriated ends. No mass lesions are identified. Assembler Wet Wash sections are submitted in two cassettes as follows: 1 - right fallopian tube, 2 - left fallopian tube. / AM:kwaku 07/09/2021 TC:5 CPT: 44676 x2
[2021-07-09] MEDS: Oxytocin 30 units/NS 500 ml 30 UNITS/500 ML IV.SOLN 167 UNITS IV (09:18)
[2021-07-09] MEDS: Ketorolac 30 MG/ML Syringe IV ×3 (09:18→21:19)
[2021-07-09] MEDS: Senna/Docusate Sodium 1 Tablet PO (11:10)
[2021-07-09] MEDS: Lactated Ringers 1,000 ML 100 ML IV (12:55)
[2021-07-09] MEDS: Heparin Injection (Vial) 5,000 UNIT/ML VIAL 5000 UNIT SC ×2 (15:46→23:03)
[2021-07-10] VITALS (7 sets, daily range): BP systolic 90–113; BP diastolic 48–60; PULSE 95–97; RESP 15–18; TEMP 36.4–36.6; O2SAT 95–98
[2021-07-10] MEDS: Acetaminophen 500 MG Tablet 1000 MG PO ×3 (01:19→13:07)
--- NOTE | 2021-07-10 03:07 | NURSING ---
07/09/21 @ 1900: Late entry- Pt. up and ambulating since before this RN's shift start. Previous nurse did not fill out first ambulation intervention, but pt. was up to chair when this RN got bedside report.
[2021-07-10] MEDS: Ketorolac 30 MG/ML Syringe IV (03:27)
[2021-07-10] MEDS: 0.9% Saline Lock 10 ML Syringe IV (03:28)
[2021-07-10 04:49] LABS: Hematocrit 30.2 % (37-47); Hemoglobin 10.1 g/dL (12.0-15.0); Mean Corp Hgb Conc 33.4 g/dL (32-36); Mean Corpuscular Hgb 28.3 pg (27.0-32.0); Mean Corpuscular Volume 84.6 fL (81-99); Mean Platelet Vol. 10.1 fl (6.2-12.0); Platelet Count 185 K/mm3 (150-450); Red Blood Count 3.57 M/mm3 (4.2-5.4); White Blood Count 10.6 K/mm3 (4.4-11.0)
[2021-07-10] MEDS: Heparin Injection (Vial) 5,000 UNIT/ML VIAL 5000 UNIT SC (06:24)
--- NOTE | 2021-07-10 08:45 | PCM.DC.SUM ---
Providers Date of Admission: 07/09/21 Primary Care Physician: No Primary Care Phys Reason For Visit: REPEAT C SECTION Diagnosis Discharge Diagnosis (1) 39 weeks gestation of : Status: Acute Code(s): Z3A.39 - 39 weeks gestation of (2) Encounter for sterilization: Status: Acute Code(s): Z30.2 - Encounter for sterilization Medications at Discharge Home Medications Prenatabs FA 1 tab PO DAILY 01/18/17 ibuprofen 600 mg PO Q8H PRN PRN #30 tab 07/10/21 oxycodone 5 mg PO Q6H 7 Days #20 tab 07/10/21 Hospital Course Operations section (bilateral salpingectomy) Procedures None Summary of Care Provided Hospital Course: 30yo admitted at 39 weeks gestation for scheduled repeat section and tubal sterilization. She had an uncomplicated section and bilateral salpingectomy. She was out of bed, ambulating, voiding, passing flatus and tolerating PO on postop day #1. Her pain was controlled and she was discharged to home. Physical Exam Const alert, oriented x3 and no apparent distress Resp normal respiratory effort, normal air movement and clear to auscultation bilaterally Cardio regular rate, regular rhythm, S1 normal heart sound and S2 normal heart sound GI normal to inspection, nondistended, normoactive bowel sounds, soft to palpation, non-tender and non-distended GI Narrative: incisional dressing c/d/i Manual OB Exam: other lochia scant Uterus Palpation: uterus fundus firm Extremity no calf tenderness Extremity Narrative: +1 b/l LE edema Weight / BMI Weight Weight: 109.134 kg Body Mass Index (BMI) 41.3 ABG / Lab / Microbiology Data Result Diagrams: 07/10/21 04:40 Laboratory: Laboratory Results - last 24 hr 07/09/21 12:36: Screen NEGATIVE, Baby's Blood Type B POSITIVE, Baby's EMANUEL NEGATIVE 07/10/21 04:40: WBC 10.6, RBC 3.57 L, Hgb 10.1 L, Hct 30.2 L, MCV 84.6, MCH 28.3, MCHC 33.4, RDW Std Deviation 46.0 H, RDW Coeff of Nicole 15.0 H, Plt Count 185, MPV 10.1 Meaningful Use Info Meaningful Use Diagnoses (Choose all that apply): None applicable Discharge Plan Admission Admit Date/Time: 07/09/21 05:02 Primary Reason for Your Visit: delivery, Tube removal Attending Provider: Marissa Martin Primary Care Provider: Care Physician,Shahida Primary Discharge Orders/Prescriptions Prescriptions: New ibuprofen 600 mg Tablet 600 mg PO Q8H PRN PRN (Reason: pain) Qty: 30 RF: 0 oxycodone 5 mg Tablet 5 mg PO Q6H 7 Days Qty: 20 RF: 0 Continued Prenatabs FA 1 TABLET tablet 1 tab PO DAILY RF: 0 Referrals / Follow Up: Care Physician,No Primary [Primary Care Provider] - Disposition Disposition (needs filled in before D/C Order can be placed): Home, Self Care
[2021-07-10] MEDS: Ibuprofen 600 MG Tablet PO (08:52)
[2021-07-10] MEDS: Senna/Docusate Sodium 1 Tablet PO (08:52)
[2021-07-10] MEDS: Prenatal Vits Tablet 1 TABLET PO (08:53)
[2021-07-11 10:11] LABS: Pathology Specimen OB SEE PATHOLOGY REPORT
== END 2021-07-10 13:20 | disposition home or self-care (01) | DRG 785 ==
PROVIDERS: Admitting Provider Obstetrics & Gynecology; Visit Provider Obstetrics & Gynecology
PROC: 10D00Z1 Extraction of Products of Conception, Low, Open Approach (ICD-10-PCS; CPT 59514; principal; 2021-07-09 07:15)
DX: O34.219 Maternal care for unspecified type scar from previous cesarean delivery (principal); O69.81X0 Labor and delivery complicated by cord around neck, without compression, not applicable or unspecified; Z30.2 Encounter for sterilization; Z3A.39 39 weeks gestation of pregnancy; Z37.0 Single live birth
CPT/HCPCS: 59050; 85025; 85027; 85461; 86850; 86900; 86901; 88302; 90384; 99218; J7120; A4216; G0378; J2790